=== PATIENT | female | born 1960 | race Caucasian/White ===

== ENCOUNTER 2024-03-30 22:03 | Inpatient (IN) | payer OTHER ==
[~2024-03-30] VITALS: Ht 175.3 cm; Wt 85.7 kg
[2024-03-30] MEDS: ACETAMINOPHEN 1000MG/100ML 100 ML IV ONE (22:30)
[2024-03-30] MEDS: MAGNESIUM/ALUMINUM HYDROXIDE/SIMETHICONE 30ML UDC PO ONE (22:30)
[2024-03-30] MEDS: PROPOFOL 200MG/20ML VIAL IV ONE (23:15)
[2024-03-31] MEDS: TRAMADOL 50MG TABLET PO ONE (01:28)
[2024-03-31] MEDS ORDERED: TRAM50TA3 MT (02:21)
[2024-03-31] MEDS: KETOROLAC 15MG/ML VIAL IV ONE (03:07)
[2024-03-31 03:42] VITALS: O2SAT 100
[2024-03-31] MEDS ORDERED: MAGNESIUM/ALUMINUM HYDROXIDE/SIMETHICONE 30ML UDC PO PRN (04:30)
[2024-03-31] MEDS ORDERED: CLONIDINE 0.1MG TABLET PO PRN (04:30)
[2024-03-31] MEDS ORDERED: IPRATROPIUM/ALBUTEROL 0.5-3(2.5)MG/3ML NEB HHN PRN (04:30)
[2024-03-31] MEDS ORDERED: GUAIFENESIN 200MG/10ML SUGAR FREE UDC PO PRN (04:30)
[2024-03-31] MEDS ORDERED: DOCUSATE SODIUM 100MG CAPSULE PO PRN (04:30)
[2024-03-31] MEDS ORDERED: ACETAMINOPHEN 325MG TABLET PO PRN (04:30)
[2024-03-31] MEDS: DEXT 5%/0.45% NACL 1000ML 1,000 ML IV SCH (04:53)
[2024-03-31 05:01] LABS: HEMOGLOBIN. 12.1 g/dL (12.0-16.0); MEAN CORPUSCULAR HEMOGLOBIN 32.7 pg (28.0-32.0); MEAN CORPUSCULAR HGB CONC 33.6 g/dL (31.0-37.0); MEAN CORPUSCULAR VOLUME 97.4 fL (81.0-99.0); MEAN PLATELET VOLUME 6.6 fl (7.4-10.4); PLATELET 390 x1000/uL (130-400); RED CELL DISTRIBUTION WIDTH 13.3 % (11.6-14.6); WHITE BLOOD COUNT 9.9 x1000/uL (4.5-11.0)
[2024-03-31 05:13] LABS: CHLORIDE 107 mEq/L (98-107); POTASSIUM 4.7 mEq/L (3.5-5.1); SODIUM 141 mEq/L (136-145)
[2024-03-31 05:14] LABS: CALCIUM 8.9 mg/dL (8.7-10.4); CARBON DIOXIDE 28 mEq/L (21-32)
[2024-03-31 05:19] LABS: CREATININE 0.8 mg/dL (0.6-1.0); GLUCOSE 129 mg/dL (70-105); UREA NITROGEN BLOOD 16 mg/dL (9-23)
[2024-03-31 05:21] LABS: ALANINE AMINOTRANSFERASE 217 IU/L (10-49); ALBUMIN 3.7 g/dL (3.2-4.8); ASPARTATE AMINOTRANSFERASE 793 IU/L (<34); BILIRUBIN TOTAL 0.6 mg/dL (0.1-1.0); CREATINE KINASE 81 IU/L (34-145); PHOSPHORUS 2.8 mg/dL (2.5-4.9)
[2024-03-31 05:28] LABS: TROPONIN I HIGH SENSITIVITY < 4 ng/L (3.0-34)
[2024-03-31 05:31] LABS: DIFFERENTIAL COMMENT 1
[2024-03-31] MEDS: ACETAMINOPHEN 325MG TABLET PO PRN (07:01)
[2024-03-31 07:46] LABS: PLATELET ESTIMATE NORMAL
[2024-03-31 16:00] VITALS: BP 132/82; PULSE 85; RESP 18; TEMP 99.1
[2024-03-31 16:26] LABS: TROPONIN I HIGH SENSITIVITY 4 ng/L (3.0-34)
[2024-03-31 16:29] LABS: CREATINE KINASE 745 IU/L (34-145)
[2024-03-31] MEDS ORDERED: LISI40TA13 MT (17:08)
[2024-03-31] MEDS ORDERED: ATOR20TA65 MT (17:10)
[2024-03-31] MEDS: KETOROLAC 15MG/ML VIAL IV PRN (17:11)
[2024-03-31 18:01] VITALS: BP 132/59; PULSE 75; RESP 18; TEMP 98.5
[2024-03-31 20:00] VITALS: BP 135/71; PULSE 79; RESP 18; TEMP 98.6
[2024-04-01] VITALS: BP 114/71; PULSE 88; RESP 18; TEMP 98.1
[2024-04-01 04:00] VITALS: BP 119/61; PULSE 86; RESP 18; TEMP 96.4
[2024-04-01 08:00] VITALS: BP 133/72; PULSE 80; RESP 18; TEMP 97.9
[2024-04-01 08:21] LABS: CARBON DIOXIDE 28 mEq/L (21-32); CHLORIDE 103 mEq/L (98-107); POTASSIUM 4.6 mEq/L (3.5-5.1); SODIUM 135 mEq/L (136-145)
[2024-04-01 08:22] LABS: CALCIUM 8.9 mg/dL (8.7-10.4)
[2024-04-01 08:23] LABS: BASOPHILS % 0.3 % (0.0-2.0); EOSINOPHILS % 3.2 % (0.0-5.0); HEMATOCRIT 36.3 % (36.0-48.0); HEMATOCRIT. 36.3 % (36.0-48.0); HEMOGLOBIN 12.1 g/dL (12.0-16.0); HEMOGLOBIN. 12.1 g/dL (12.0-16.0); LYMPHOCYTES % 13.2 % (20.0-50.0); MEAN CORPUSCULAR HEMOGLOBIN 32.4 pg (28.0-32.0); MEAN CORPUSCULAR HGB CONC 33.3 g/dL (31.0-37.0); MEAN CORPUSCULAR VOLUME 97.3 fL (81.0-99.0); MEAN PLATELET VOLUME 6.9 fl (7.4-10.4); MONOCYTES % 5.4 % (2.0-8.0); NEUTROPHILS % 77.9 % (40.0-76.0); PLATELET 358 x1000/uL (130-400); RED BLOOD CELL COUNT 3.74 mill/uL (4.2-5.4); RED CELL DISTRIBUTION WIDTH 13.3 % (11.6-14.6)
[2024-04-01 08:27] LABS: CREATININE 0.8 mg/dL (0.6-1.0); GLUCOSE 101 mg/dL (70-105); TRIGLYCERIDE 107 mg/dL (0-150); UREA NITROGEN BLOOD 12 mg/dL (9-23)
[2024-04-01 08:28] LABS: LDL CHOLESTEROL 57 mg/dL (5-100)
[2024-04-01 08:29] LABS: CHOLESTEROL 115 mg/dL (<200); CREATINE KINASE 573 IU/L (34-145); HDL CHOLESTEROL 43 mg/dL (>65)
[2024-04-01 08:30] LABS: T4 FREE 0.97 ng/dL (0.89-1.76); THYROID STIMULATING HORMONE 1.17 uIU/mL (0.55-4.78)
[2024-04-01] MEDS: PANTOPRAZOLE SODIUM 40 MG/VIAL IV SCH (09:06)
[2024-04-01] MEDS: ENOXAPARIN 40MG/0.4ML SYR SUBCUT SCH (09:50)
[2024-04-01 12:00] VITALS: BP 142/83; PULSE 77; RESP 19; TEMP 97.9
[2024-04-01 12:22] LABS: CLARITY URINE CLEAR (CLEAR); COLOR URINE YELLOW (YELLOW); GLUCOSE URINE NEGATIVE (NEGATIVE); KETONES URINE NEGATIVE (NEGATIVE); LEUKOCYTE ESTERASE URINE NEGATIVE (NEGATIVE); NITRITE URINE NEGATIVE (NEGATIVE); OCCULT BLOOD URINE NEGATIVE (NEGATIVE); PROTEIN URINE NEGATIVE (NEGATIVE); SPECIFIC GRAVITY URINE 1.012 (1.005-1.030); UROBILINOGEN URINE 0.2 E.U./dL (0.2-1.0)
[2024-04-01 12:42] LABS: *AMPHETAMINES SCREEN URINE NEGATIVE (NEGATIVE); *BARBITURATES SCREEN URINE NEGATIVE (NEGATIVE); *BENZODIAZEPINES SCREEN URINE NEGATIVE (NEGATIVE); METHADONE URINE SCREEN NEGATIVE (NEGATIVE); OPIATES URINE SCREEN PRESUMPTIVE POSITIVE (NEGATIVE)
[2024-04-01 12:43] LABS: CANNABINOID URINE SCREEN NEGATIVE (NEGATIVE); ECSTASY MDMA SCREEN URINE NEGATIVE (NEGATIVE); PHENCYCLIDINE URINE SCREEN NEGATIVE (NEGATIVE)
[2024-04-01 13:13] LABS: *COCAINE SCREEN URINE NEGATIVE (NEGATIVE)
[2024-04-01 16:00] VITALS: BP 136/72; PULSE 90; RESP 20; TEMP 98.1
[2024-04-01 20:00] VITALS: BP 147/84; PULSE 84; RESP 18; TEMP 98.1
[2024-04-02] VITALS: BP 125/77; PULSE 87; RESP 20; TEMP 98.1
[2024-04-02 08:00] VITALS: BP 131/72; PULSE 84; RESP 19; TEMP 97
[2024-04-02 08:15] LABS: CHLORIDE 106 mEq/L (98-107); POTASSIUM 3.8 mEq/L (3.5-5.1); SODIUM 138 mEq/L (136-145)
[2024-04-02 08:16] LABS: CARBON DIOXIDE 27 mEq/L (21-32)
[2024-04-02 08:17] LABS: CALCIUM 8.9 mg/dL (8.7-10.4)
[2024-04-02 08:21] LABS: CREATININE 0.8 mg/dL (0.6-1.0)
[2024-04-02 08:22] LABS: GLUCOSE 98 mg/dL (70-105); UREA NITROGEN BLOOD 10 mg/dL (9-23)
[2024-04-02 08:24] LABS: HEMATOCRIT 35.5 % (36.0-48.0); HEMOGLOBIN 12.1 g/dL (12.0-16.0); MEAN CORPUSCULAR HEMOGLOBIN 33.1 pg (28.0-32.0); MEAN CORPUSCULAR VOLUME 97.4 fL (81.0-99.0); PLATELET 384 x1000/uL (130-400); RED BLOOD CELL COUNT 3.65 mill/uL (4.2-5.4); RED CELL DISTRIBUTION WIDTH 13.4 % (11.6-14.6); WHITE BLOOD COUNT 7.2 x1000/uL (4.5-11.0)
[2024-04-02 12:00] VITALS: BP 144/82; PULSE 91; RESP 19; TEMP 96.8
[2024-04-02] MEDS ORDERED: POLYMYXIN B SULFATE 500000 UNITS/VIAL ONE (13:24)
[2024-04-02] MEDS ORDERED: VANCOMYCIN HCL 1GM VIAL ONE (13:24)
[2024-04-02] MEDS ORDERED: LIDOCAINE HCL/EPINEPHRINE 1%-EPI 1:100,000 20 ML VIAL ONE (13:25)
[2024-04-02] MEDS ORDERED: BUPIVACAINE HCL/PF 0.25% (2.5MG/ML) 10ML ONE (14:13)
[2024-04-02] MEDS ORDERED: DEXAMETHASONE 4MG/ML 1ML VIAL ONE (14:40)
[2024-04-02] MEDS ORDERED: ONDANSETRON HCL 4MG/2ML INJ ONE (14:40)
[2024-04-02] MEDS ORDERED: PROPOFOL 200MG/20ML VIAL IV ONE (14:40)
[2024-04-02] MEDS ORDERED: MIDAZOLAM HCL 2 MG/2 ML VIAL ONE (14:40)
[2024-04-02] MEDS ORDERED: FENTANYL CITRATE/PF 50MCG/ML 2ML VIAL ONE (14:41)
[2024-04-02] MEDS ORDERED: MEPERIDINE HCL/PF 25MG/ML CPJ IV PRN (15:15)
[2024-04-02] MEDS ORDERED: LABETALOL 5MG/ML 4ML INJ IV PRN (15:15)
[2024-04-02] MEDS ORDERED: ONDANSETRON HCL 4MG/2ML INJ IV PRN (15:15)
[2024-04-02] MEDS ORDERED: ROPIVACAINE HCL 1% 20 ML VIAL EPI ONE (15:44)
[2024-04-02] MEDS: HYDROMORPHONE HCL/PF 2MG/ML INJ IV PRN (16:23)
[2024-04-02] MEDS: ONDANSETRON HCL 4MG/2ML INJ IV PRN (19:01)
[2024-04-02 20:00] VITALS: BP 150/88; PULSE 92; RESP 20; TEMP 97.5
[2024-04-02] MEDS: CEFAZOLIN 2GM/100ML 100 ML IV SCH (21:23)
[2024-04-02] MEDS ORDERED: CEFAZOLIN SODIUM 2000MG/VIAL IJ SCH (22:00)
[2024-04-03] VITALS: BP 140/86; PULSE 94; RESP 20; TEMP 97.9
[2024-04-03 06:57] LABS: CHLORIDE 107 mEq/L (98-107); SODIUM 138 mEq/L (136-145)
[2024-04-03 06:58] LABS: BASOPHILS % 0.1 % (0.0-2.0); CALCIUM 8.8 mg/dL (8.7-10.4); CARBON DIOXIDE 25 mEq/L (21-32); HEMATOCRIT. 35.3 % (36.0-48.0); LYMPHOCYTES % 9.7 % (20.0-50.0); MEAN CORPUSCULAR HEMOGLOBIN 33.1 pg (28.0-32.0); MEAN CORPUSCULAR HGB CONC 33.9 g/dL (31.0-37.0); MEAN CORPUSCULAR VOLUME 97.5 fL (81.0-99.0); MONOCYTES % 4.9 % (2.0-8.0); NEUTROPHILS % 85.3 % (40.0-76.0); PLATELET 388 x1000/uL (130-400); RED BLOOD CELL COUNT 3.62 mill/uL (4.2-5.4); RED CELL DISTRIBUTION WIDTH 13.1 % (11.6-14.6); WHITE BLOOD COUNT 8.1 x1000/uL (4.5-11.0)
[2024-04-03 07:03] LABS: CREATININE 0.8 mg/dL (0.6-1.0); GLUCOSE 133 mg/dL (70-105); UREA NITROGEN BLOOD 10 mg/dL (9-23)
[2024-04-03] MEDS: FAMOTIDINE 20MG/2ML VIAL IV SCH (08:24)
[2024-04-03] MEDS: KETOROLAC 10MG TABLET PO PRN (11:28)
[2024-04-03 12:00] VITALS: BP 154/80; PULSE 84; RESP 19; TEMP 98.2
[2024-04-03 16:00] VITALS: BP 147/80; PULSE 77; RESP 18; TEMP 97.9
[2024-04-03 20:00] VITALS: BP 130/73; PULSE 78; RESP 20; TEMP 97.4
[2024-04-04] VITALS: BP 127/70; PULSE 73; RESP 16; TEMP 98.2
[2024-04-04 04:00] VITALS: BP 110/61; PULSE 83; RESP 17; TEMP 97.6
[2024-04-04 08:00] VITALS: BP 154/89; PULSE 81; RESP 19; TEMP 97.5
[2024-04-04 12:00] VITALS: BP 144/84; PULSE 86; RESP 18; TEMP 97.7
[2024-04-04] MEDS ORDERED: ASPI-1497 PO (12:05)
[2024-04-04] MEDS ORDERED: IBUP-2030 MT (12:05)
[2024-04-04 14:37] VITALS: BP 144/84; PULSE 86; TEMP 97.8
== END 2024-04-04 15:26 | disposition home or self-care (01) | DRG 494 ==
LOC: ER 22:03 → EDBEDREQ 03-31 03:48 → EDBEDREQTM 03-31 03:48 → 5WST 03-31 09:04 → 6EST 03-31 16:12
PROVIDERS: ADMIT Internal Medicine; ATTEND Internal Medicine
PROC: 0QSK04Z Reposition Left Fibula with Internal Fixation Device, Open Approach (ICD-10-PCS; principal; 2024-04-02)
DX: S82.852A Displaced trimalleolar fracture of left lower leg, initial encounter for closed fracture (principal); E78.5 Hyperlipidemia, unspecified; I10 Essential (primary) hypertension; W10.9XXA Fall (on) (from) unspecified stairs and steps, initial encounter; Z20.822 Contact with and (suspected) exposure to COVID-19; Z79.899 Other long term (current) drug therapy; Z88.5 Allergy status to narcotic agent; Y93.89 Activity, other specified; Y92.89 Other specified places as the place of occurrence of the external cause; Y99.8 Other external cause status
CPT/HCPCS: 36415; 73610; 73620; 76000; 80048; 80053; 80061; 80305; 81003; 82550; 82962; 83735; 84100; 84439; 84443; 84484; 85025; 85027; 87426; 93306; 93970; 97116; 97162; 97164; 97166; 97530; 99285; J0690; J1100; J1170; J1650; J1885; J2250; J2405; J2704; J2795; J3010; J3370; J3490; J0131